=== PATIENT | female | born 1995 | race Caucasian/White ===

== ENCOUNTER 2019-11-12 12:48 | Emergency (ER) | payer OTHER ==
[~2019-11-12] VITALS: Ht 165.1 cm; Wt 73.0 kg
[~2019-11-12 12:48] MED LIST: ANTIVERT25 MG PO; BIRTH CONTROL; CIPRO500 MG PO; HYDROCODONE-AP1 EAC6 PO
[2019-11-12 13:14] LABS: ABSOLUTE LYMPHOCYTES 1.5 thou/uL (0.8-5.3); ABSOLUTE MONOCYTES 0.3 thou/uL (0.0-1.2); ABSOLUTE NEUTROPHILS 3.9 thou/uL (1.6-8.1); BASOPHILS 0.5 %; EOSINOPHILS 0.4 %; HEMATOCRIT 39.7 % (37.0-47.0); HEMOGLOBIN 13.9 gm/dL (12.0-15.0); LYMPHOCYTES 25.9 %; MCV 91.5 fL (80.0-100.0); MONOCYTES 4.4 %; MPV 7.9 fl. (7.2-11.1); NUCLEATED RBCS 0 /100WBC; PLATELET COUNT* 256 thou/uL (150-400); POLYS 68.8 %; RBC 4.34 mil/uL (4.20-5.00); RDW-CV 12.2 % (10.5-14.5); WBC 5.7 thou/uL (4.0-11.0)
[2019-11-12 13:25] LABS: CALCIUM 8.6 mg/dL (8.5-10.1); CREATININE 1.1 mg/dL (0.6-1.3); POTASSIUM 4.1 mmol/L (3.5-5.1)
[2019-11-12 13:29] LABS: ALBUMIN 3.7 g/dL (3.4-5.0); TOTAL BILIRUBIN 0.3 mg/dL (<0.1-1.0); TOTAL PROTEIN 7.4 g/dL (6.4-8.2)
[2019-11-12 13:35] LABS: URINE BILIRUBIN NEGATIVE (Negative); URINE BLOOD NEGATIVE (Negative); URINE CLARITY CLEAR; URINE COLOR YELLOW; URINE GLUCOSE-RANDOM NEGATIVE (Negative); URINE KETONES NEGATIVE (Negative); URINE LEUKOCYTES-REFLEX TRACE (Negative); URINE NITRITE-REFLEX NEGATIVE (Negative); URINE PROTEIN NEGATIVE (Negative); URINE UROBILINOGEN 0.2 E.U./dl (0.2-1.0)
[2019-11-12 13:43] LABS: SQUAMOUS 0-3 Few /LPF (0-3)
[2019-11-12 13:44] LABS: CASTS None Seen /LPF (None Seen); CRYSTALS None Seen /LPF (None Seen); URINE RBC 0-2 Rare /HPF (0-2); URINE WBC-REFLEX 6-15 Few /HPF (0-5)
[2019-11-12] MEDS ORDERED: ONDANSETRON HCL4 M2 PO (14:24)
[2019-11-12] MEDS ORDERED: TRANSDERM-SCOP1 EACH TRANSDERM (14:24)
[2019-11-12] MEDS ORDERED: KEFLEX500 M1 PO (14:24)
[2019-11-12 14:35] VITALS: BP 112/70
--- NOTE | 2019-11-12 16:34 | EKG ---
[place] [address] ELECTROCARDIOGRAM REPORT Name: NELLY JASON Room: [facility]#: [id number] Admission: 11/12/19 Attend Phys: Discharge: 11/12/19 Date of : [birth year] Date of Service: 11/12/19 1327 Report #: [id number] THIS REPORT FOR: //name// [facility] ED Test Date: 2019-11-12 Test Time: 13:27:53 Pat Name: NELLY JASON Department: Room: Gender: F [employer]: [facility] : 1995 Requested By: Fabiola Motley Order Number: [id number] : Pawel Kirkpatrick Measurements Intervals [place] Rate: 76 P: 56 MT: 110 QRS: 61 QRSD: 85 T: 10 QT: 376 QTc: 423 Interpretive Statements Sinus rhythm Borderline short MT interval No previous ECG available for comparison Electronically Signed On 11-12-2019 16:32:42 CDT by Pawel Kirkpatrick [email or web address] <ELECTRONICALLY SIGNED> By: Pawel Kirkpatrick MD, [facility] 11/12/19 1632 1327 1327 Pawel Kirkpatrick MD, FAC /EPI
== END 2019-11-12 14:35 | disposition home or self-care (01) ==
LOC: M.ERS 12:48
PROVIDERS: Nurse Practitioner Family
DX: N39.0 Urinary tract infection, site not specified (principal); R55 Syncope and collapse; Z88.0 Allergy status to penicillin